=== PATIENT | female | born 2005 | race Caucasian/White ===

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

== ENCOUNTER 2023-03-18 01:40 | Outpatient (CLI) | payer OTHER, BC, MEDICAID, SELFPAY ==
[2023-03-18 01:56] VITALS: BP 133/74; PULSE 100; TEMP 35.9
[2023-03-18 02:00] VITALS: RESP 18; BMI 32.1
[2023-03-18 02:11] VITALS: BP 106/63; PULSE 93
[2023-03-18 02:45] VITALS: BP 106/63; PULSE 93; RESP 17; TEMP 35.9; O2SAT 99
== END 2023-03-18 02:45 | disposition home or self-care (01) ==
LOC: OPOB 01:41 → OBGYN 01:42
PROVIDERS: PCP Family Medicine; Visit Provider Family Medicine
DX: O47.9 False labor, unspecified (principal); Z3A.00 Weeks of gestation of pregnancy not specified
CPT/HCPCS: 59025; 99211

== ENCOUNTER 2023-03-23 07:50 | Outpatient (CLI) | payer OTHER, BC, MEDICAID, SELFPAY ==
[2023-03-23] VITALS (7 sets, daily range): BP systolic 115–127; BP diastolic 73–81; PULSE 97–104; RESP 17; TEMP 35.6; BMI 33.2
[2023-03-23 08:30] LABS: Nitrazine Paper, PH Inconclusive
[2023-03-23 08:40] LABS: Actim Prom Negative
== END 2023-03-23 10:17 | disposition home or self-care (01) ==
LOC: OPOB 08:00 → OBGYN 08:02
PROVIDERS: PCP Family Medicine; Visit Provider Family Medicine
DX: O26.899 Other specified pregnancy related conditions, unspecified trimester (principal); M54.9 Dorsalgia, unspecified; N89.8 Other specified noninflammatory disorders of vagina; Z3A.00 Weeks of gestation of pregnancy not specified
CPT/HCPCS: 59025; 83986; 84112; 99211

== ENCOUNTER 2023-03-28 12:20 | Outpatient (CLI) | payer OTHER, BC, MEDICAID, SELFPAY ==
[2023-03-28 12:20] VITALS: BMI 34.0
[2023-03-28 12:33] VITALS: BP 132/85; PULSE 92
[2023-03-28 12:53] VITALS: BP 105/60; PULSE 90
[2023-03-28 13:13] VITALS: BP 119/81; PULSE 93
[2023-03-28 13:33] VITALS: BP 119/78; PULSE 94
[2023-03-28 13:54] VITALS: BP 122/76; PULSE 90
== END 2023-03-28 14:00 | disposition home or self-care (01) ==
LOC: OPOB 12:25 → OBGYN 12:26
PROVIDERS: PCP Family Medicine; Visit Provider Family Medicine
DX: O47.9 False labor, unspecified (principal); O26.899 Other specified pregnancy related conditions, unspecified trimester; N89.8 Other specified noninflammatory disorders of vagina; Z3A.00 Weeks of gestation of pregnancy not specified
CPT/HCPCS: 59025; 99211

== ENCOUNTER 2023-04-02 03:15 | Inpatient (IN) | payer OTHER, BC, MEDICAID, SELFPAY ==
[2023-04-01] VITALS (19 sets, daily range): BP systolic 108–140; BP diastolic 55–91; PULSE 80–120; RESP 16; TEMP 36.6; O2SAT 86–100
[2023-04-01] MEDS: lactated ringers 1,000 ML 999 ML IV (22:12)
[2023-04-01] MEDS: ceFAZolin 2,000 MG in sodium chloride 0.9% (plus) 50 ML 100 MG IV (22:15)
[2023-04-01 22:36] LABS: Basophils % 0.1 %; Eosinophils # 0.1 10^3/uL (0.0-0.8); Eosinophils % 0.3 %; Hematocrit 32.7 % (37.0-47.0); Hemoglobin 10.2 g/dL (11.5-15.3); Lymphocytes # 2.8 10^3/uL (1.5-6.5); Lymphocytes % 19.4 %; Mean Corpuscular HGB Conc 31.2 g/dL (30.0-36.0); Mean Corpuscular Hemoglobin 22.5 pg (28.0-34.0); Mean Corpuscular Volume 72.2 fl (81-99); Mean Platelet Volume 10.4 fL (7.4-10.4); Monocytes # 1.4 10^3/uL (0.2-0.9); Monocytes % 9.5 %; Neutrophils # 10.25 10^3/uL (1.8-8.0); Neutrophils % 69.9 %; Nucleated Red Blood Cells % 0 %; Platelet Count 302 10^3/cmm (130-400); Red Blood Count 4.53 10^6/uL (4.1-5.3); Red Cell Distribution Width 14.5 % (12.1-15.1); White Blood Count 14.7 10^3/uL (4.5-13.0)
--- NOTE | 2023-04-01 23:40 | P.ANESASSM_ITS ---
Pre-Anesthetic Assessment Height/Weight: Height 1.57 m Pulse BP Pulse Ox 97 118/55 99 04/01/23 23:38 04/01/23 23:38 04/01/23 23:38 Preop Diagnosis: IUP Labor Epidural Familial anesthetic complications: None Last intake: 1700 - solid clears. Social No alcohol and No tobacco Exam alert, oriented x 3 and clear to auscultation bilaterally Airway Submandibular: within normal limits Cervical ROM: within normal limits Mallampati: Class II Dentition: full History/ROS No significant history except as noted Pulmonary None reported CV/HEM None reported None reported Hepatic None reported GI None reported Metabolic None reported Musc/skel None reported Neuropsych Anxiety Anesthetic Plan ASA status: 2 Anesthesia: Regional (specify below) Other: Labor Epidural Medications/Allergies Home Medications Medication Instructions Recorded Confirmed Last Taken Type vit no.133-ferrous 1 tab PO DAILY 11/26/22 03/23/23 03/23/23 02:00 History fumarate 28 mg-folic acid 800 mcg tablet () acetaminophen 500 mg PO PRN PRN Mild Pain (Scale 03/18/23 03/23/23 03/23/23 02:00 History Score 1-4) Allergies Allergy/AdvReac Type Severity Reaction Status Date / Time Penicillins Allergy ALGY-Hives Verified 03/18/23 02:26 Data Anesthesia 04/01/23 22:20 Short CBC 04/01/23 Range/Units 22:20 WBC 14.7 H (4.5-13.0) 10^3/uL Hgb 10.2 L (11.5-15.3) g/dL Hct 32.7 L (37.0-47.0) % MCV 72.2 L (81-99) fl Plt Count 302 (130-400) 10^3/cmm Neut % (Auto) 69.9 % Neut # (Auto) 10.25 H (1.8-8.0) 10^3/uL Cardiac Studies: No Data to Display Anesthesia Procedures Epidural Time Out Performed: Yes Consent: from patient, risks and benefits reviewed and patient agrees to proceed Lumbar Level: L3-L4 Epidural position: sitting Epidural procedure: sterile prep of area, 1% lidocaine to numb the area, negative for paresthesia passed, test dose given, 1.5% xylocaine 1:200k epi, placed PCEA, no systemic response, sterile dressing applied, L.U.D. no apparent complications and 0.2% Ropiavacaine @ mls/hr (10) Additional Comments: ALCIDES at 5.5cm on first attempt. Catheter threaded to 12cm. Test dose negative, 100 mcg Fentanyl given via epidural. Remaining lidocaine and saline given. connected to [employer] pump.
[2023-04-02] VITALS (85 sets, daily range): BP systolic 100–155; BP diastolic 54–83; PULSE 77–117; RESP 16–17; TEMP 36.3–37.6; O2SAT 82–100; BMI 31.4
[2023-04-02] MEDS: calcium carbonate 500 mg Chew Tablet 1000 MG PO (04:45)
[2023-04-02] MEDS: dextrose 5%-lactated ringers 1,000 ML 125 ML IV (05:46)
[2023-04-02] MEDS: ceFAZolin 1,000 MG in sodium chloride 0.9% (plus) 50 ML 100 MG IV (06:23)
[2023-04-02] MEDS: ondansetron 2 mg/ML SDV 2 mL 4 MG IVP (10:50)
--- NOTE | 2023-04-02 12:54 | PM.OPHPUD ---
Labor & Delivery H&P Update Date of Procedure: April 02, 2023 Date H&P Performed: 03/30/23 Admission Diagnosis: SROM at 40 weeks gestation Preop diagnosis: IUP Planned procedure: Expectant management of labor and delivery
--- NOTE | 2023-04-02 12:55 | PM.DELIVERY ---
Delivery Note: Date of delivery: April 02, 2023 Procedure: Normal spontaneous vaginal Estimated blood loss (mL): 200 Pre-Delivery Course: She had routine care at [facility]. There were no complications during the . Delivery: This is a 17-year-old G1, P0 at 40 weeks 1 day gestation who presented to labor and delivery last evening with spontaneous rupture of membranes. She had clear fluid and was about 4 cm dilated. She was GBS positive and penicillin allergic so she was started on cephalexin. She was colt regularly on her own and asked for an epidural for pain management. Her labor progressed well on its own and she had a normal spontaneous vaginal delivery of a viable male infant weight 4175 g, 9 pounds 3 ounces, Apgars 9 and 9 over an intact perineum. The was followed by meconium stained fluid. He was suctioned at delivery and placed on the mother's chest. The cord was clamped and cut. The placenta was delivered grossly intact and normal to inspection. There was a left first-degree vaginal laceration that was sutured using 3-0 chromic. Mother and infant were doing well after delivery. She had received 2 doses of cephalexin prior to delivery. Coding Level of Care Code Acute Code for Chg Fwd Diagnoses
[2023-04-02 13:56] LABS: Glucose Point of Care 57 mg/dL (70-110)
[2023-04-02] MEDS: ibuprofen 800 mg tablet PO (15:27)
[2023-04-03 02:31] LABS: Hematocrit 23.2 % (37.0-47.0); Hemoglobin 6.9 g/dL (11.5-15.3); Mean Corpuscular HGB Conc 29.7 g/dL (30.0-36.0); Mean Corpuscular Volume 74.1 fl (81-99); Mean Platelet Volume 10.3 fL (7.4-10.4); Platelet Count 217 10^3/cmm (130-400); Red Blood Count 3.13 10^6/uL (4.1-5.3); Red Cell Distribution Width 14.7 % (12.1-15.1); White Blood Count 17.6 10^3/uL (4.5-13.0)
[2023-04-03 03:56] VITALS: BP 118/76; PULSE 76; RESP 16; TEMP 36.7
--- NOTE | 2023-04-03 06:36 | PC.NURSE ---
RN rounded on patient in attempt to obtain vitals and assess fundal height, patient refused to exit bathroom. declined vitals and fundal assessment at this time.
[2023-04-03] MEDS: acetaminophen 325 mg Tablet 650 MG PO (06:51)
[2023-04-03 06:55] VITALS: BP 126/86; PULSE 90; RESP 16; TEMP 36.7
[2023-04-03] MEDS: ibuprofen 800 mg tablet PO ×3 (09:51→21:13)
[2023-04-03] MEDS: prenatal vitamin Capsule 1 CAP PO (09:51)
[2023-04-03] MEDS: docusate sodium 100 mg Capsule PO (09:51)
[2023-04-03 10:58] VITALS: BP 123/72; PULSE 75; RESP 18; TEMP 36.4; O2SAT 95
[2023-04-03 15:41] VITALS: BP 118/78; PULSE 92; RESP 15; TEMP 36.7; O2SAT 99
--- NOTE | 2023-04-03 17:30 | P.PN_ITS ---
Subjective Subjective: The patient states she is doing well today. She does not have any dizziness or lightheadedness. Her bleeding has been average to light. Vitals/I&O/Wt Last Vital Signs Temp 98.1 F 04/03/23 15:41 Pulse 92 04/03/23 15:41 Resp 15 04/03/23 15:41 BP 118/78 04/03/23 15:41 Pulse Ox 99 04/03/23 15:41 O2 Del Method Room Air 04/03/23 15:41 Weight last 48 hrs Weight 91.172 kg Physical Exam Narrative: Alert and oriented, sitting up in bed, heart regular rate and rhythm, lungs clear to auscultation bilaterally, abdomen soft and nontender, fundus firm and U -2, extremities have some edema but no calf tenderness Urinary Catheter Management: Martínez Latex: Cath Placed During This Visit: yes, but has since been removed by the nurse Reason for Continuing Indwelling Catheter: Decision to DC Catheter Urinary Catheter Date of Insertion: 04/02/23 Urinary Catheter Time of Insertion: 00:00 Date Urinary Catheter Removed: 04/02/23 Time Urinary Catheter Discontinued: 10:40 Data 04/03/23 02:15 A&P Assessment and plan (1) (normal spontaneous vaginal delivery): Routine care (2) Acute blood loss anemia: Patient has been without symptoms and vitals have been stable. Iron jackson pplementation. Attestations Medical Necessity Statement*: Routine care Coding Level of Care Code Acute Code for Chg Fwd Diagnoses (normal spontaneous vaginal delivery) O80 Acute blood loss anemia D62
[2023-04-03 20:45] VITALS: BP 147/94; PULSE 76; RESP 16
[2023-04-03 22:45] VITALS: BP 131/89; PULSE 94; RESP 16
[2023-04-04 04:00] VITALS: BP 122/79; PULSE 90; RESP 16
--- NOTE | 2023-04-04 07:10 | PC.NURSE ---
received bedside report from Yina Handy RN at shift change
[2023-04-04] MEDS: docusate sodium 100 mg Capsule PO (08:29)
[2023-04-04] MEDS: ibuprofen 800 mg tablet PO (08:29)
[2023-04-04] MEDS: ferrous sulfate EC 325 mg Tablet PO (08:29)
[2023-04-04] MEDS: prenatal vitamin Capsule 1 CAP PO (08:29)
[2023-04-04 10:17] VITALS: BP 124/81; PULSE 72; RESP 16; TEMP 36.8; O2SAT 99
--- NOTE | 2023-04-04 12:08 | P.DS_ITS ---
Discharge Providers Date of Admission: 04/02/23 03:15 Date of Discharge: April 04, 2023 Attending Provider at Admission: Janet Rodriguez MD Attending Provider at Discharge: Janet Rodriguez MD Primary Care Provider: Andrea Espinoza MD Diagnoses at Discharge Discharge Diagnosis (1) (normal spontaneous vaginal delivery): Status: Acute (2) Acute blood loss anemia: Status: Acute Reason for Visit Reason for Visit: ROM Hospital Course Hospital Course This is a 17-year-old G1 now P1 who had a normal spontaneous vaginal delivery of a viable male weight 9 pounds 3 ounces. The infant was 40 weeks 1 day gestation. Mother was GBS positive and received 2 doses of cephalexin prior to delivery. Mother and infant were kept for observation 48 hours after delivery. her hemoglobin did drop to 6.9 but she was asymptomatic. She was started on iron to continue upon discharge. Physical Exam Narrative: Alert and oriented, sitting on bedside couch holding infant, heart regular rate and rhythm, lungs clear to auscultation bilaterally, abdomen is soft and nontender, extremities have edema but no calf tenderness Urinary Catheter Management: Martínez Latex: Cath Placed During This Visit: yes, but has since been removed by the nurse Reason for Continuing Indwelling Catheter: Decision to DC Catheter Urinary Catheter Date of Insertion: 04/02/23 Urinary Catheter Time of Insertion: 00:00 Date Urinary Catheter Removed: 04/02/23 Time Urinary Catheter Discontinued: 10:40 Discharge Data Studies Completed and Pending Laboratory Results WBC 17.6 10^3/uL (4.5-13.0) H 04/03/23 02:15 RBC 3.13 10^6/uL (4.1-5.3) L 04/03/23 02:15 Hgb 6.9 g/dL (11.5-15.3) L D 04/03/23 02:15 Hct 23.2 % (37.0-47.0) L 04/03/23 02:15 MCV 74.1 fl (81-99) L 04/03/23 02:15 MCH 22.0 pg (28.0-34.0) L 04/03/23 02:15 MCHC 29.7 g/dL (30.0-36.0) L 04/03/23 02:15 RDW 14.7 % (12.1-15.1) 04/03/23 02:15 Plt Count 217 10^3/cmm (130-400) 04/03/23 02:15 MPV 10.3 fL (7.4-10.4) 04/03/23 02:15 Neut % (Auto) 69.9 % 04/01/23 22:20 Lymph % (Auto) 19.4 % 04/01/23 22:20 [place] % (Auto) 9.5 % 04/01/23 22:20 Eos % (Auto) 0.3 % 04/01/23 22:20 Baso % (Auto) 0.1 % 04/01/23 22:20 Neut # (Auto) 10.25 10^3/uL (1.8-8.0) H 04/01/23 22:20 Lymph # (Auto) 2.8 10^3/uL (1.5-6.5) 04/01/23 22:20 [place] # (Auto) 1.4 10^3/uL (0.2-0.9) H 04/01/23 22:20 Eos # (Auto) 0.1 10^3/uL (0.0-0.8) 04/01/23 22:20 Baso # (Auto) 0.0 10^3/uL (0.0-0.1) 04/01/23 22:20 Nucleated RBC % (auto) 0 % 04/01/23 22:20 Nucleated RBCs # 0.0 /100WBC 04/01/23 22:20 POC Glucose 57 mg/dL (70-110) L 04/02/23 13:28 Vitals Last Vital Signs Temp 98.2 F 04/04/23 10:17 Pulse 72 04/04/23 10:17 Resp 16 04/04/23 10:17 BP 124/81 04/04/23 10:17 Pulse Ox 99 04/04/23 10:17 O2 Del Method Room Air 04/04/23 10:17 Discharge Plan Discharge Patient Disposition: Home Condition: Stable Prescriptions: New ferrous sulfate 325 mg (65 mg iron) Tablet,Delayed Release (Dr/Ec) 325 mg PO BIDWM Qty: 60 0RF Continued 28-800 mg-mcg Tablet 1 tab PO DAILY acetaminophen 500 mg PO PRN PRN (Reason: Mild Pain (Scale Score 1-4)) Discharge Orders: Discharge Order (Routine); Ordered 04/04/23 Ordered By: Janet Rodriguez Referrals: Janet Rodriguez MD [Physician] - 1 month Discharge Diet: Usual diet Discharge Activity: Limit activity as instructed Patient Instructions: Depression (DC), Bleeding (DC), Preeclampsia and Eclampsia After Delivery (GEN), Hemorrhage (DC), OB Discharge Report, OB Food/Drug Interaction Guide, OB Care at Home, Opioid Safety, OB Vaginal Deliveries Discharge Attestations Time Spent in Discharge Care*: less than 30 min Quality Metrics Clinical Quality Measures [ No reported AMI, CVA or VTE this stay] Coding Level of Care Code Acute Code for Chg Fwd Diagnoses (normal spontaneous vaginal delivery) O80 Acute blood loss anemia D62
[2023-04-04 16:00] VITALS: BP 137/92; PULSE 88; RESP 16; TEMP 36.9; O2SAT 100
[2023-04-04 16:40] VITALS: BP 137/92; PULSE 88; RESP 16; TEMP 36.9; O2SAT 100
== END 2023-04-04 16:45 | disposition home or self-care (01) | DRG 806 ==
LOC: OPOB 03:16 → OBGYN 03:16
PROVIDERS: Admitting Provider Family Medicine; PCP Family Medicine; Visit Provider Family Medicine
DX: O99.824 Streptococcus B carrier state complicating childbirth (principal); D62 Acute posthemorrhagic anemia; Z37.0 Single live birth; Z3A.40 40 weeks gestation of pregnancy; O48.0 Post-term pregnancy; O77.0 Labor and delivery complicated by meconium in amniotic fluid; O70.0 First degree perineal laceration during delivery; O99.02 Anemia complicating childbirth; Z88.0 Allergy status to penicillin
CPT/HCPCS: 36415; 36416; 51702; 59025; 59409; 82962; 83986; 85025; 85027; 96374; 96376; 99211; J0690; J2405; J2795; J3010; J7040; J7120; J7121

== ENCOUNTER → 2024-06-03 08:17 | Outpatient (BNVA) | payer OTHER, BC, MEDICAID, SELFPAY | PROVIDERS: PCP Family Medicine; Visit Provider Nurse Practitioner Women's Health | DX: N92.6 Irregular menstruation, unspecified (principal) | CPT/HCPCS: 81025; 84702; 86850; 86900 ==

== ENCOUNTER → 2024-06-10 08:09 | Outpatient (BNVA) | payer OTHER, BC, MEDICAID, SELFPAY | PROVIDERS: PCP Family Medicine; Visit Provider Nurse Practitioner Women's Health | DX: Z36.87 Encounter for antenatal screening for uncertain dates (principal); Z3A.01 Less than 8 weeks gestation of pregnancy | CPT/HCPCS: 76801 ==

== ENCOUNTER → 2024-07-09 09:59 | Outpatient (BNVA) | payer OTHER, BC, MEDICAID, SELFPAY | PROVIDERS: PCP Family Medicine; Visit Provider Nurse Practitioner Women's Health | DX: Z34.90 Encounter for supervision of normal pregnancy, unspecified, unspecified trimester (principal) | CPT/HCPCS: 80307; 84315; 84443; 85025; 86592; 86762; 86803; 86850; 86900; 87086; 87340; 87806 ==

== ENCOUNTER 2025-01-01 03:15 | Inpatient (IN) | payer OTHER, BC, MEDICAID, SELFPAY ==
[2025-01-01] VITALS (19 sets, daily range): BP systolic 94–132; BP diastolic 57–78; PULSE 72–103; RESP 14–16; TEMP 36.4–36.9; O2SAT 98–100; BMI 31.1
[2025-01-01] MEDS: oxytocin 30 UNIT/500 ML BAG 600 UNIT IV (03:39)
[2025-01-01] MEDS: lactated ringers 1,000 ML 125 ML (03:51)
[2025-01-01] MEDS: fentaNYL 50 mcg/mL INJ 2mL 100 MCG (03:56)
[2025-01-01 04:03] LABS: Basophils % 0.2 %; Eosinophils # 0.1 10^3/uL (0.0-0.8); Eosinophils % 0.4 %; Hematocrit 32.1 % (36-47); Lymphocytes # 5.4 10^3/uL (0.8-4.8); Mean Corpuscular HGB Conc 29.9 g/dL (30-55); Mean Corpuscular Volume 66.7 fl (85-98); Mean Platelet Volume 9.6 fL (7.4-10.4); Monocytes # 1.2 10^3/uL (0.2-0.9); Monocytes % 7.1 %; Neutrophils # 9.59 10^3/uL (1.8-7.7); Neutrophils % 58.7 %; Nucleated Red Blood Cells % 0 %; Platelet Count 351 10^3/cmm (157-399); Red Blood Count 4.81 10^6/uL (3.85-5.65); Red Cell Distribution Width 15.7 % (12.1-15.1); Slide Review Slide Review Perform; White Blood Count 16.37 10^3/uL (3.29-11.43)
--- NOTE | 2025-01-01 04:27 | PM.OPHPUD ---
Labor & Delivery H&P Update Date of Procedure: January 01, 2025 Date H&P Performed: 12/25/24 Changes to previous documentation: Patient arrived at the hospital complete. Admission Diagnosis: 19-year-old 2 para 1-0-0-1 at 37 weeks estimated gestational age presenting to the hospital complete Planned procedure: Vaginal delivery Other information: The patient had a relatively unremarkable . She was initially cared for at the [facility] center here at [facility]. She transferred care during the second trimester. Her is otherwise been unremarkable. Her blood type is a positive part. Her antibody screen is negative. She is GBS negative. She is rubella immune. The remainder of her infectious disease profile is within normal limits. She passed her glucose screen. Related Problem List Diagnoses (1) 37 weeks gestation of : (2) Active labor: A&P Assessment and plan (1) 37 weeks gestation of : She delivered precipitously within minutes of being put in hospital room. Status: Acute (2) Active labor: Status: Acute PDMP PDMP Reviewed: Not Reviewed
--- NOTE | 2025-01-01 04:36 | PM.DELIVERY ---
Delivery Note: Date of delivery: January 01, 2025 Pre-delivery diagnoses: 19-year-old 2 para 1-0-0-1 at 37 weeks estimated gestational age presenting to the hospital in active labor Post-delivery diagnoses: Status post precipitous vaginal delivery Procedure: Precipitous vaginal delivery Delivering Physician: Kenan Cox Estimated blood loss (mL): 100 Pre-Delivery Course: The patient presented to the hospital stating that she is can have the baby in the car. The nurses met her in the parking lot and brought her into the facility. Has 0 putting her in the room she became somewhat catatonic and was unresponsive to sternal rub. That resolved spontaneously. She has been acting relatively normal since that time. Delivery: DELIVERY: The patient progressed to complete before arriving at the hospital. She was then brought back to the room where she delivered a female with a weight of 6 pounds 1 ounce with Apgars of 7, 8 with the assistance of the nurses. The cord was then clamped and cut. There was no nuchal cord. There was no meconium. The placenta and three-vessel cord delivered spontaneously shortly thereafter. It was reported to me that there was a retained placenta. Upon evaluation of the placenta, the placenta appeared to be intact, But there were residual membranes. I was able to deliver the membranes, and did a uterine sweep for any further residual placenta. I did remove some clots. The perineum and vaginal vault were carefully examined. No lacerations were noted. Both the mother and the baby were in stable condition. Post-Delivery Status: Good History History History 2 Term 1 0 Miscarriages/Ectopic 0 Living Children 1 A&P Assessment and plan (1) Spontaneous vaginal delivery: I anticipate routine care (2) 37 weeks gestation of : PDMP PDMP Reviewed: Not Reviewed Coding Level of Care Code Acute Code for Chg Fwd Diagnoses Spontaneous vaginal delivery O80 37 weeks gestation of Z3A.37
--- NOTE | 2025-01-01 05:53 | PC.NURSE ---
0302- phone call from warehouse stocker notifying the unit of possible parking lot delivery coming in advised by automatic shirring machine operator through ER call. 030- RN meets patient in parking lot, patient is grossly ruptured with no evident sign of baby coming out. 030- patient moved to wheelchair and brought to L&D unit. contractions started at 2am, ROM at 230am 0310- SVE preformed by hector 8/90%/-1 -attempt made to reach Dr. Cox phones are down 318- Due to Dr. Cox not being reached after multiple attemps, Dr. Mckeon notified of patient imminent delivery. 318- cervical exam preformed by augustina 10/100%/+2 station with passive descent and involuntary pushing, nurses coaching patient to breathe and not to push. 031- Baby is delivered. apgars of 7/8 0330- reattempt to call Dr. Cox, successful at this time Dr. Cox states he is on his way. 0339- Placenta delivered spontaneously 0340- Physician notified of placenta delivery and possible retained membrane, orders for 100mcg of fentanyl at this time. 0355- Physician in Room.
[2025-01-01] MEDS: benzocaine-menthol 78 gm Canister 1 SPRAY TOPICAL (06:40)
[2025-01-01] MEDS: docusate sodium 100 mg Capsule PO ×2 (09:10→20:04)
[2025-01-01] MEDS: ibuprofen 800 mg tablet PO ×3 (09:11→20:04)
[2025-01-01] MEDS: PRENATAL VIT NO.130/IRON/FOLIC 1 EACH TABLET PO (09:11)
[2025-01-01] MEDS: lanolin oint 7 gm 1 APPLIC TOPICAL (14:28)
[2025-01-01 15:32] LABS: Hematocrit 26.2 % (36-47); Mean Corpuscular HGB Conc 29.8 g/dL (30-55); Mean Corpuscular Hemoglobin 20.3 pg (27-33); Mean Corpuscular Volume 68.1 fl (85-98); Mean Platelet Volume 9.8 fL (7.4-10.4); Platelet Count 258 10^3/cmm (157-399); Red Blood Count 3.85 10^6/uL (3.85-5.65); Red Cell Distribution Width 15.7 % (12.1-15.1); White Blood Count 14.29 10^3/uL (3.29-11.43)
--- NOTE | 2025-01-02 07:51 | P.DS_ITS ---
Discharge Providers RINK RAT Date of Admission: 01/01/25 03:15 Date of Discharge: 01/02/25 Attending Provider at Admission: Kenan Cox MD Attending Provider at Discharge: Kenan Cox MD Primary Care Provider: Andrea Espinoza MD Diagnoses at Discharge Discharge Diagnosis (1) Spontaneous vaginal delivery: Status: Acute (2) 37 weeks gestation of : Status: Acute Reason for Visit Reason for Visit: SROM Hospital Course Hospital Course The patient presented to the hospital in active labor and complete. She delivered shortly after arriving at the hospital. I was notified as she was delivering. The placenta was delivered spontaneously but there were retained membranes. I carefully inspected the placenta and it appeared intact. I was able to carefully deliver the membranes afterwards. Otherwise, she has had an unremarkable hospital stay. She has breast-fed well. Her bleeding has been within normal limits. And her pain is been well-controlled. Information Peripartum Data: Delivery Method: Vaginal Physical Exam Narrative: The patient is alert. She appears comfortable. Her heart has a regular rate and rhythm with no murmurs appreciated. Lungs are clear to auscultation bilaterally. Her fundus is firm and below the umbilicus. History History History 2 Term 1 0 Miscarriages/Ectopic 0 Living Children 1 Discharge Data Studies Completed and Pending Laboratory Results WBC 14.29 10^3/uL (3.29-11.43) H 01/01/25 15:15 RBC 3.85 10^6/uL (3.85-5.65) 01/01/25 15:15 Hgb 7.80 g/dL (11.27-16.99) L 01/01/25 15:15 Hct 26.2 % (36-47) L 01/01/25 15:15 MCV 68.1 fl (85-98) L 01/01/25 15:15 MCH 20.3 pg (27-33) L 01/01/25 15:15 MCHC 29.8 g/dL (30-55) L 01/01/25 15:15 RDW 15.7 % (12.1-15.1) H 01/01/25 15:15 Plt Count 258 10^3/cmm (157-399) 01/01/25 15:15 MPV 9.8 fL (7.4-10.4) 01/01/25 15:15 Neut % (Auto) 58.7 % 01/01/25 03:20 Lymph % (Auto) 33.0 % 01/01/25 03:20 [place] % (Auto) 7.1 % 01/01/25 03:20 Eos % (Auto) 0.4 % 01/01/25 03:20 Baso % (Auto) 0.2 % 01/01/25 03:20 Neut # (Auto) 9.59 10^3/uL (1.8-7.7) H 01/01/25 03:20 Lymph # (Auto) 5.4 10^3/uL (0.8-4.8) H 01/01/25 03:20 [place] # (Auto) 1.2 10^3/uL (0.2-0.9) H 01/01/25 03:20 Eos # (Auto) 0.1 10^3/uL (0.0-0.8) 01/01/25 03:20 Baso # (Auto) 0.0 10^3/uL (0.0-0.1) 01/01/25 03:20 Nucleated RBC % (auto) 0 % 01/01/25 03:20 Nucleated RBCs # 0.0 /100WBC 01/01/25 03:20 Blood Type O Positive 01/01/25 03:20 Rho(D) Type Rh positive 01/01/25 03:20 Antibody Screen Negative 01/01/25 03:20 Vitals Last Vital Signs Temp 98.2 F 01/01/25 21:25 Pulse 82 01/01/25 21:25 Resp 16 01/01/25 21:25 BP 106/73 01/01/25 21:25 Pulse Ox 100 01/01/25 21:25 O2 Del Method Room Air 01/01/25 21:25 Results Labs OB ([facility]): Blood Type O Positive 01/01/25 Antibody Screen Negative 01/01/25 Hct 26.2 % (36-47) L 01/01/25 Hgb 7.80 g/dL (11.27-16.99) L 01/01/25 Rho(D) Type Rh positive 01/01/25 Plt Count 258 10^3/cmm (157-399) 01/01/25 Hep Bs Antigen Non-reactive (Nonreactive) 07/09/24 Hep Bs Antibody 365.6 (11.5-1000) 02/14/24 Hepatitis C Antibody Non-reactive (Nonreactive) 07/09/24 Rubella IgG Antibody 93.7 IU/mL (0.0-10.0) H 07/09/24 RPR Nonreactive (Nonreactive) 07/09/24 HIV 1&2 Ab & HIV 1 Ag Non-reactive (Non-Reactiv) 07/09/24 TSH 1.96 uIU/mL (0.27-4.20) 07/09/24 VZV IgG Antibody 827.30 index 02/14/24 Ser , Semi-Qnt 63673.00 mIU/mL 06/03/24 HCG, Qual Positive (Negative) H 06/03/24 Urine Opiates Screen Negative ng/mL (Negative) 07/09/24 Ur Barbiturates Screen Negative ng/mL (Negative) 07/09/24 Ur Phencyclidine Scrn Negative ng/mL (Negative) 07/09/24 Ur Amphetamines Screen Negative ng/mL (Negative) 07/09/24 U Benzodiazepines Scrn Negative ng/mL (Negative) 07/09/24 Urine Cocaine Screen Negative ng/mL (Negative) 07/09/24 U Marijuana (THC) Screen Negative ng/mL (Negative) 07/09/24 Micro Urine Specimen 07/09/24 Discharge Plan Discharge Patient Disposition: Home Condition: Stable Prescriptions: New ibuprofen 800 mg Tablet 800 mg PO TID Qty: 45 0RF Continued Gummies 400 mcg-35 mg- 25 mg-5 mg tablet,chewable 1 tab PO 1XD Discharge Orders: Discharge Order (Routine); Ordered 01/02/25 Ordered By: Kenan Cox Referrals: Kenan Cox MD [Physician] - 02/12/25 10:20 am Discharge Diet: Usual diet Discharge Activity: Limit activity as instructed Patient Instructions: Depression (DC), Opioid Safety (DC), Preeclampsia and Eclampsia After Delivery (GEN), Hemorrhage (DC), OB Discharge Report, OB Food/Drug Interaction Guide, OB Care at Home, Opioid Safety, OB Vaginal Deliveries, Abnormal Bleeding Discharge Attestations RINK RAT Time Spent in Discharge Care*: less than 30 min Coding Level of Care Code Acute Code for Chg Fwd Diagnoses Spontaneous vaginal delivery O80 37 weeks gestation of Z3A.37
[2025-01-02] MEDS: ibuprofen 800 mg tablet PO (08:31)
[2025-01-02] MEDS: docusate sodium 100 mg Capsule PO (08:31)
[2025-01-02] MEDS: PRENATAL VIT NO.130/IRON/FOLIC 1 EACH TABLET PO (08:31)
[2025-01-02 11:09] VITALS: BP 115/70; PULSE 100; RESP 15; TEMP 36.6; O2SAT 98
== END 2025-01-02 11:30 | disposition home or self-care (01) | DRG 806 ==
LOC: OBGYN 03:15
PROVIDERS: Admitting Provider Family Medicine; PCP Family Medicine; Visit Provider Family Medicine
DX: O62.3 Precipitate labor (principal); O72.2 Delayed and secondary postpartum hemorrhage; Z37.0 Single live birth; Z3A.37 37 weeks gestation of pregnancy
CPT/HCPCS: 36415; 59409; 85025; 85027; 86850; 86900; 96374; 99211; J2590; J3010; J7120; J9999